=== PATIENT | female | born 1970 | race Caucasian/White ===

== ENCOUNTER 2025-01-22 21:28 | Emergency (ER) | payer OTHER, SELFPAY ==
--- OUTSIDE RECORDS SUMMARY | 2025-01-22 21:31 | XMS_ITS | Clinical Summary ---
Author Organization [employer] [facility] Address [address] [place] [address] Care Team Providers Care Safety Instruction Police Officer Name Role Phone Yasmin Bob Primary Care Provider Rodney Bolanos MD Unavailable [phone] Allergies Active Allergy Reactions Criticality Noted Date Comments Amoxicillin Hives 03/04/2017 Penicillins Hives 12/13/2008 Capsaicin Other - Describe In Comment Field 02/07/2020 Topical - Severe Burning sensation Medications ACCU-CHEK SALOMON 0 08/02/19 18 Active lancetsIndication s:Uncontrolled type 2 diabetes mellitus without complication, without long-term current use of insulin USE TO TEST BLOOD SUGAR 3 TIMES DAILY. DISPENSE ITEM COVERED BY PT'S INSURANCE 300 Each 3 04/14/19 20 Active blood-glucose meterIndications: Type 2 diabetes mellitus without complication, without long-term current use of insulin (HC) Dispense meter, test strips, lancets covered by pt ins. E11.65 NIDDM type II, uncontrolled - Test 3 times/day, Reason: High A1C 1 Device 12/27/19 20 Active pen needle, diabetic (BD Insulin Pen Needle UF) 31 gauge x 08/12Indications: Controlled type 2 diabetes mellitus without complication, without long-term current use of insulin (HC) Remove the 2 covers on the insulin pen needle before administering insulin dose. 100 Each 12/31/19 23 Active continuous glucose monitor READER (PageStitchSYLE MARK)Indications :Type 2 diabetes mellitus with diabetic neuropathy, without long-term current use of insulin (HC) To be used to read blood sugars per leasing specialist's directions. 1 Each 06/19/19 24 Active continuous glucose monitor SENSOR KIT (FREESYLE MARK)Indications :Type 2 diabetes mellitus with diabetic neuropathy, without long-term current use of insulin (HC) To be used to read blood sugars per leasing specialist's directions. 6 Each 3 12/29/19 24 Active pen needle (BD Salomon 2nd Gen Pen Needle) 32 gauge x 5/32 (disposable insulin pen needle)Indication s:Type 2 diabetes mellitus, without long-term current use of insulin (HC) Use to check blood sugar 1-2x/day. Remove the 2 covers on the pen needle before administering medication dose. 100 Each 5 07/05/19 25 Active insulin glargine-yfgn (U-100) (Semglee(insulin glarg-yfgn)Pen) 100 unit/mL (3 mL) penIndications:Co ntrolled type 2 diabetes mellitus without complication, without long-term current use of insulin (HC) Inject 36 units subcutaneous before bedtime. 9 mL 5 08/03/19 25 Active nabumetone (RELAFEN) 500 mg tabletIndications :Costochondritis, Arthritis of left hand,Lumbar pain Take 1 Tablet (500 mg) by mouth two times daily with meals. 60 Tablet 1 12/31/19 25 Active venlafaxine (EFFEXOR XR) 150 mg Extended-Release capsuleIndication s:Anxiety,Adjustm ent disorder, unspecified type,Menopausal symptoms Take 1 Capsule (150 mg) by mouth once daily with a meal. 90 Capsule 3 12/31/19 25 Active traZODone (DESYREL) 50 mg tabletIndications :Anxiety,Adjustme nt disorder, unspecified type Take 1 Tablet (50 mg) by mouth at bedtime. 90 Tablet 3 12/31/19 25 Active rosuvastatin (CRESTOR) 10 mg tabletIndications :Hyperlipidemia, unspecified hyperlipidemia type Take 1 Tablet (10 mg) by mouth at bedtime. 90 Tablet 3 12/31/19 25 Active pregabalin (LYRICA) 50 mg capsuleIndication s:Neuropathy Take 1 Capsule (50 mg) by mouth two times daily. 180 Capsule 3 12/31/19 25 Active metoprolol succinate (TOPROL XL) 50 mg sustained-release tabletIndications :Hypertension, unspecified type Take 1 Tablet (50 mg) by mouth once daily. 90 Tablet 3 12/31/19 25 Active methIMAzole (TAPAZOLE) 5 mg tabletIndications :Hyperthyroidism Take 1 Tablet (5 mg) by mouth once daily. 90 Tablet 1 12/31/19 25 Active metFORMIN (GLUCOPHAGE XR) 500 mg Extended-Release tabletIndications :Controlled type 2 diabetes mellitus without complication, without long-term current use of insulin (HC) Take 4 Tablets (2,000 mg) by mouth once daily. 360 Tablet 3 12/31/19 25 Active empagliflozin (Jardiance) 25 mg tabletIndications :Controlled type 2 diabetes mellitus without complication, without long-term current use of insulin (HC) Take 1 Tablet (25 mg) by mouth once daily. 90 Tablet 1 12/31/19 25 Active insulin glargine U-300 (Toujeo SoloStar U-300 Insulin) 300 unit/mL (1.5 mL) penIndications:Co ntrolled type 2 diabetes mellitus without complication, without long-term current use of insulin (HC) Inject 36 units subcutaneous once daily. 10.5 mL 3 12/31/19 25 Active glipiZIDE extended-release (GLUCOTROL XL) 10 mg Extended-Release tabletIndications :Controlled type 2 diabetes mellitus without complication, without long-term current use of insulin (HC) Take 2 Tablets (20 mg) by mouth once daily before a meal. 180 Tablet 3 12/31/19 25 Active glipiZIDE extended-release (GLUCOTROL XL) 10 mg Extended-Release tabletIndications :Controlled type 2 diabetes mellitus without complication, without long-term current use of insulin (HC) Take 2 Tablets (20 mg) by mouth once daily before a meal. 180 Tablet 3 12/29/19 24 025 Discontin ued(Reord er (E-cancel not sent)) metFORMIN (GLUCOPHAGE XR) 500 mg Extended-Release tabletIndications :Controlled type 2 diabetes mellitus without complication, without long-term current use of insulin (HC) Take 4 Tablets (2,000 mg) by mouth once daily. 360 Tablet 3 12/29/19 24 025 Discontin ued(Reord er (E-cancel not sent)) metoprolol succinate (TOPROL XL) 50 mg sustained-release tabletIndications :HTN (hypertension) Take 1 Tablet (50 mg) by mouth once daily. 90 Tablet 3 12/29/19 24 025 Discontin ued(Reord er (E-cancel not sent)) pregabalin (LYRICA) 50 mg capsuleIndication s:Neuropathy Take 1 Capsule (50 mg) by mouth two times daily. Start on 07/06/23 after weaning gabapentin. 180 Capsule 3 12/29/19 24 025 Discontin ued(Reord er (E-cancel not sent)) rosuvastatin (CRESTOR) 10 mg tabletIndications :Hyperlipidemia, unspecified hyperlipidemia type Take 1 Tablet (10 mg) by mouth at bedtime. 90 Tablet 3 12/29/19 24 025 Discontin ued(Reord er (E-cancel not sent)) traZODone (DESYREL) 50 mg tabletIndications :Anxiety,Adjustme nt disorder, unspecified type Take 1 Tablet (50 mg) by mouth at bedtime. 90 Tablet 3 12/29/19 24 025 Discontin ued(Reord er (E-cancel not sent)) venlafaxine (EFFEXOR XR) 150 mg Extended-Release capsuleIndication s:Anxiety,Adjustm ent disorder, unspecified type,Menopausal symptoms Take 1 Capsule (150 mg) by mouth once daily with a meal. 90 Capsule 3 12/29/19 24 025 Discontin ued(Reord er (E-cancel not sent)) methIMAzole 5 mg tabletIndications :Hyperthyroidism TAKE 1 TABLET BY MOUTH EVERY DAY 90 Tablet 1 06/28/19 25 025 Discontin ued(Reord er (E-cancel not sent)) Jardiance 25 mg tabletIndications :Controlled type 2 diabetes mellitus without complication, without long-term current use of insulin (HC) TAKE 1 TABLET BY MOUTH EVERY DAY 90 Tablet 1 07/19/19 25 025 Discontin ued(Reord er (E-cancel not sent)) insulin glargine U-300 (Toujeo SoloStar U-300 Insulin) 300 unit/mL (1.5 mL) penIndications:Co ntrolled type 2 diabetes mellitus without complication, without long-term current use of insulin (HC) Inject 36 units subcutaneous once daily. 10.5 mL 3 08/11/19 25 025 Discontin ued(Reord er (E-cancel not sent)) nabumetone 500 mg tabletIndications :Costochondritis TAKE 1 TABLET (500 MG) BY MOUTH TWICE A DAY WITH MEALS 60 Tablet 09/07/19 25 025 Discontin ued(Reord er (E-cancel not sent)) Active Problems Problem Noted Date Diagnosed Date Hyperthyroidism 07/11/2024 Type 2 diabetes mellitus wit hout complication, without long-term current use of insulin 07/27/2017 Lumbar facet arthropathy 05/05/2016 Anxiety state, unspecified 11/05/2011 Resolved Problems Problem Noted Date Diagnosed Date Resolved Date Poorly controlled type 2 filomena betes mellitus with neuropathy 04/11/2022 04/08/2024 Uncontrolled type 2 diabetes mellitus, without long-term current use of insulin 04/08/2021 12/16/2021 Dyshidrotic eczema 09/13/2018 Hot flashes 06/19/2015 12/16/2021 Kidney stone 04/05/2015 12/16/2021 Other specified adjustment reaction 05/05/2014 01/07/2022 Bulging lumbar disc 02/13/2014 01/08/20 Facet arthropathy 02/06/2014 04/13/2017 Lateral epicondylitis 11/21/20132021 Encounters Date Type Department Care Team Description 12/30/2024 11:50 AM CDT Office Visit [facility] [address] [place] [address] Yasmin Bob PA Diabetes (Diabetic check); Back Pain/problem (Hearing popping noises from her back / does has pain in her lower back, worse at night time); Hand Pain/problem (Having more pain in her L hand - arthritis? ) 12/30/2024 Refill [facility] [address] [place] [address] Yasmin Bob PA Refill Request (Rosuvastatin, Methimazole) 12/29/2024 Travel 11/30/2024 Nurse Triage [facility] [address] [place] [address] Yasmin Bob PA Hand Pain/problem from Last 3 Months Immunizations Immunization Administration Dates Next Due AMB Influenza, IIV3 (Age >=3 years)(Flu Clinic Only) 12/14/2012 AMB Influenza, IIV4 PF (=>6 mos Flulaval,Fluzone Fluarix)(Flu Clinic Only) 01/01/2018 COVID-19 vaccine (Nanostellar NTech 30mcg/0.3mL) PF, MDV 08/01/2020,07/11/2020 Hepatitis B (Adult) 12/20/2019,12/21/2018,2018 INFLUENZA, IIV3 PF (AGE >= 6 MO) 01/01/2024 Influenza Virus, Unspecified 01/01/2024,12/30/19 09 Influenza, IIV3 (Age >=3 years) 12/23/2011 Influenza, IIV4 12/30/2022,,11/13/2020,2019,12/21/2018,12/14/2015,12/20/2014,0 12/13/2013 Influenza, IIV4 (=>6mos) MDV 01/14/2017 Pneumococcal Poly,23-Valent (Pneumovax) 10/25/2018 Tdap 10/27/2011 Family History Medical History Relation Name Comments Diabetes Father Hyperlipidemia Father Hypertension Father Other Maternal Grandmother brain t umor Hyperlipidemia Mother Thyroid Disease Mother Cancer-breast Other Maternal cousi n at age 22 Heart Disease Paternal Grandfather Cancer-ovarian No Family History Relation Name Status Comments Father Maternal Grandmother Mother Other Paternal Grandfather Social History Tobacco Use Types Packs/Day Years Used Date Smoking Tobacco: Passive Smo ke Exposure - Never Smoker Smokeless Tobacco: Never Tobacco Cessation:Counseling Given: Yes Alcohol Use Standard Drinks/Week Comments No 0 (1 standard drink = 0.6 oz pur e alcohol) PHQ-2 Answer Date Recorded PHQ-2 TOTAL SCORE 0 09/27/2019 Social Connections Answer Date Recorded Do you often feel lonely or isolated from those around you? 0 12/30/2024 Financial Resource Strain Answer Date R ecorded Difficulty of Paying Living Expenses 3 12/30/2024 Difficulty of Paying Living Expenses Not on file 12/30/2024 Food Insecurity Answer Date Recorded Do you worry your food will run out before you are able to buy more? 1 12/30/2024 Transportation Needs Answer Date Record ed Does lack of transportation keep you from medica l appointments? 1 12/30/2024 Does lack of transportation keep you from work, meetings or getting things that you need? 1 12/30/2024 Housing Stability Answer Date Recorded What is your housing situation today? 1 12/30/2024 Utilities Answer Date Recorded Do you have trouble paying f or utilities (for example, heat, electricity, water, phone)? 1 12/30/2024 Comments No Sex and Gender Information Value Date Recorded Sex Assigned at Not on file Legal Sex Female 5:24 AM [employer] Gender Identity Not on file Sexual Orientation Not on file Obstetrics History Last Filed Vital Signs Vital Sign Reading Time Taken Comments Blood Pressure 132/74 12/30/2024 12:28 PM CDT ma nual Pulse 73 12/30/2024 12:01 PM CDT Temperature 36.4 C (97.6 F) 01/11/2024 8:17 AM CDT Respiratory Rate 16 01/11/2024 8:17 AM CDT Oxygen Saturation 97% 07/11/2024 9:12 AM CDT Inhaled Oxygen Concentration - - Weight 80.5 kg (177 lb 6.4 oz) 12/30/2024 12:01 PM CDT Height 161 cm (5' 3.39) 01/07/2022 11:51 AM CDT Body Mass Index 31.04 01/07/2022 11:51 AM CDT Plan of Treatment Health Maintenance Due Date Last Done Comments HIV for age 15-65 12/08/1987 Hepatitis C screening for ag e 18-79 1990 Colonoscopy through age 75 2017 Pneumococcal series for age 50+ (2 of 2 - PCV) 10/26/2019 10/25/2018 Depression screening for age 12+ 09/26/2020 09/27/2019, 09/15/2018, 09/13/2018, Additional history exists Pap test for age 21-65 11/24/2020 8, 12/06/2014, 10/27/2011 Tetanus booster 10/26/2021 10/27/2011 Mammogram for age 45-75 01/22/2022 01/23/20 21, 01/29/2016, 12/06/2014, Additional history exists Zoster (shingles) series for age 50+ (1 of 2) 2022 BMI (ht and wt on same day) for age 18+ 01/07/2023 01/07/2022, 05/24/2021, 10/23/2020, Additional history exists Influenza Vaccine (#1) 2024 , 01/01/2024, 12/30/2022, Additional history exists Lipids for age 45-75 12/30/2029 12/30/2024, 12/29/2023, 06/19/2023, Additional history exists RSV vaccine for adults or (1 - 1-dose 75+ series) 12/08/2047 Hepatitis B series for 19+ Completed 12/19, 12/21/2018, 10/25/2018 Procedures Procedure Name Priority Date/Time Associated Diagnosis Comments TSH Routine 12/30/2024 12:38 PM CDT Hyperthyroidism LIPID PANEL W REFLEX MEASURED LDL Routine 12/30/2024 12:38 PM CDT Controlled type 2 diabetes mellitus without complication, without long-term current use of insulin (HC) BASIC METABOLIC PANEL Routine 12/30/2024 12:38 PM CDT Hypertension, unspecified type HEMOGLOBIN A1C MONITORING (POCT) Routine 12/30/2024 12:38 PM CDT Controlled type 2 diabetes mellitus without complication, without long-term current use of insulin (HC) XR MAMMO BILAT SCREENING Routine 01/22/2021 3:32 PM CDT Visit for screening mammogram PALAEONTOLOGIST THIN PREP PAP SCREEN IMAGED Routine 11/24/2017 2:50 PM CDT Screening for cervical cancer from Last 3 Months or Most Recently Relevant to Health Maintenance Results * (ABNORMAL) LIPID PANEL W REFLEX MEASURED LDL (12/30/2024 12:38 PM CDT) CHOLESTEROL, TOTAL 101 <200 mg/dL 12/31/2024 4:04 AM CDT [facility] TRIGLYCERIDES 233(H) <150 mg/dL 12/31/2024 4:04 AM CDT [facility] Comment: If a non-fasting specimen was collected, consider repeat triglyceride testing on a fasting specimen if clinically indicated. Jessie et al. J. of Clin. Lipidol. 2015;9:129-169. HDL CHOLESTEROL 28(L) > OR = 50 mg/dL 12/31/2024 4:04 AM CDT [facility] NON HDL CHOLESTEROL 73 <130 mg/dL (calc) 12/31/2024 4:04 AM CDT [facility] Comment: For patients with diabetes plus 1 major ASCVD risk factor, treating to a non-HDL-C goal of <100 mg/dL (LDL-C of <70 mg/dL) is considered a therapeutic option. CHOL/HDLC RATIO 3.6 <5.0 (calc) 12/31/2024 4:04 AM CDT [facility] LDL-CHOLESTEROL 44 mg/dL (calc) 12/31/2024 4:04 AM [facility] Comment: Reference range: <100 Desirable range <100 mg/dL for primary prevention; <70 mg/dL for patients with CHD or diabetic patients with > or = 2 CHD risk factors. LDL-C is now calculated using the Pantera-Allyssa calculation, which is a validated novel method providing better accuracy than the Friedewald equation in the estimation of LDL-C. Pantera SS et al. BURKE. 2013;310(19): 3707-1866 (http://education.Amazing Photo Letters.ikeGPS/faq/ZLM716) Blood BLOOD SPECIMEN / Unknown [facility] / Unknown 12/30/2024 12:38 PM CDT 12/30/2024 12:38 PM CDT us Yasmin ANGELES CHEMISTRY Final R esult [facility] [address] [place] [address], * (ABNORMAL) TSH (12/30/2024 12:38 PM CDT) TSH 5.12(H) mIU/L 12/31/2024 5:12 AM CDT [facility] Comment: Reference Range > or = 20 Years 0.40-4.50 Ranges First trimester 0.26-2.66 Second trimester 0.55-2.73 Third trimester 0.43-2.91 Blood BLOOD SPECIMEN / Unknown [facility] / Unknown 12/30/2024 12:38 PM CDT 12/30/2024 12:38 PM CDT Yasmin ANGELES CHEMISTRY Final R esult Performing Organization Address [facility]/ZIP Co de Phone Number [facility] [address] [place] [phone], [place] [phone] * (ABNORMAL) HEMOGLOBIN A1C MONITORING (POCT) (12/30/2024 12:38 PM CDT) Pathologist [facility] POC HEMOGLOBIN A1C 6.6(H) <6.0 % OF TOTAL HGB 12/30/2024 1:04 PM CDT [facility] Comment: Any point of care results exhibiting inconsistency with the patient's clinical status should be repeated using a different testing method. Blood BLOOD SPECIMEN / Unknown [facility] / Unknown 12/30/2024 12:38 PM CDT 12/30/2024 12:38 PM CDT us Yasmin ANGELES CHEMISTRY Final R esult Performing Organization Address [facility]/ZIP Co de Phone Number [facility] [address] [place] [phone], [place] [phone] [facility] [address] [place] [address], [place] [phone] * (ABNORMAL) BASIC METABOLIC PANEL (12/30/2024 12:38 PM CDT) SODIUM 143 135 - 146 mmol/L 12/31/2024 4:04 AM CDT [facility] POTASSIUM 3.6 3.5 - 5.3 mmol/L 12/31/2024 4:04 AM CDT [facility] CARBON DIOXIDE 30 20 - 32 mmol/L 12/31/2024 4:04 AM CDT [facility] GLUCOSE 140(H) 65 - 99 mg/dL 12/31/2024 4:04 AM CDT [facility] Comment: Fasting reference interval For someone without known diabetes, a glucose value >125 mg/dL indicates that they may have diabetes and this should be confirmed with a follow-up test. CALCIUM 8.9 8.6 - 10.4 mg/dL 12/31/2024 4:04 AM CDT [facility] CREATININE 0.85 0.50 - 1.03 mg/dL 12/31/2024 4:04 AM CDT [facility] BUN/CREATININE RATIO SEE NOTE: 6 - 22 (calc) 12/31/2024 4:04 AM CDT [facility] Comment: Not Reported: BUN and Creatinine are within reference range. EGFR 82 > OR = 60 mL/min/1. 73m2 12/31/2024 4:04 AM CDT [facility] UREA NITROGEN (BUN) 9 7 - 25 mg/dL 12/31/2024 4:04 AM CDT [facility] ELECTROLYTE BALANCE 8 7 - 17 mmol/L (calc) 12/31/2024 4:04 AM CDT [facility] CHLORIDE 105 98 - 110 mmol/L 12/31/2024 4:04 AM CDT [facility] Blood BLOOD SPECIMEN / Unknown [facility] / Unknown 12/30/2024 12:38 PM CDT 12/30/2024 12:38 PM CDT us Yasmin ANGELES CHEMISTRY Final R esult [facility] [address] [place] [address], * XR MAMMO BILAT SCREENING (01/22/2021 3:32 PM CDT) Anatomical Region Laterality Modality BREASTS, Breast Left, Breast Right Bilateral Mammography Impressions 01/23/2021 4:22 PM CDT There is no radiographic evidence for malignancy. Recommend annual mammograms. MAMMOGRAM ASSESSMENT: ACR 1 Negative PATIENTS: You will also receive a letter with your examination results in an easy to read format. If you have questions about your results, please contact your referring provider. Narrative 01/23/2021 4:22 PM CDT For Patients: As a result of the Century Cures Act, medical imaging exams and procedure reports are released immediately into your electronic medical record. You may view this report before your referring provider. If you have questions, please contact your health care provider. XR MAMMO BILAT SCREENING [[id number]] CLINICAL HISTORY: This is an asymptomatic 50 y.o. patient. INDICATION FOR EXAM: Mammogram Screening. TECHNIQUE: CC & MLO views were obtained. This study was evaluated with the assistance of Computer-Aided Detection. COMPARISON FILM: Yes 01/29/16 [email or web address]: The breasts are almost entirely fatty. There are no dominant masses, suspicious micro calcifications or areas of architectural distortion. us Yasmin ANGELES MAMMO Final R esult * PALAEONTOLOGIST THIN PREP PAP SCREEN IMAGED (11/24/2017 2:50 PM CDT) Case Report Gynecologic Cytology Report Case: [id number] Authorizing Provider: Yasmin Bob PA Collected: 11/24/2017 1450 Ordering Location: [facility] Received: 11/24/2017 1554 Clinic First Screen: Cyn Esparza Specimen: PALAEONTOLOGIST ThinPrep Vial Screening, Cervical 12/06/2017 11:29 AM CDT [facility] INTERPRETATION/ RESULT NEGATIVE FOR INTRAEPITHELIAL LESION OR MALIGNANCY (NIL) (none) 12/06/2017 11:29 AM CDT [facility] at 1129 CDT SPECIMEN ADEQUACY Satisfactory for evaluation Endocervical component present 12/06/2017 11:29 AM CDT [facility] HPV REQUEST HPV if ASCUS 12/06/2017 11:29 AM CDT [facility] Date of LMP 11/02/2017 12/06/2017 11:29 AM CDT [facility] Last Pap Date 12/06/14 12/06/2017 11:29 AM CDT [facility] Last Pap Result NIL 11:29 AM CDT [facility] Abnormal Pap or [place] Bx in last 5 years No 12/06/2017 11:29 AM CDT [facility] Menstrual Status Regular Periods 12/06/2017 11:29 AM CDT [facility] [place] Bx Done Today No 12/06/2017 11:29 AM CDT [facility] Additional Information None given 12/06/2017 11:29 AM CDT [facility] Automated Review Successful 12/06/2017 11:29 AM T [facility] Comment:Specimen processed s uccessfully by automated senior marketing data analyst device, ThinPrep Imaging System, [employer] Note The pap test is a screening technique, not a diagnostic procedure. It is used primarily to screen for squamous cancers and precursor lesions. Published studies have shown that it is subject to both false negative and false positive results. The pap test should not be used as the sole means to diagnose or exclude pre-malignant and malignant lesions. Cytology is screened and interpreted at [facility] - [address], [place] [address] and [facility] - [address]; [place] [address] [facility] - [address]; [place] [address] and [facility] [address]; [place] [address] 12/06/2017 11:29 AM CDT [facility] Other (Cervical) Non-Blood / Unknown 11/24/2017 2:50 PM CDT 11/24/2017 3:54 PM CDT us Yasmin ANGELES PATHOLOGY/CYTOLOGY Keily mckeon Result [facility] [address] [place] [address], [place] from Last 3 Months or Most Recently Relevant to Health Maintenance Insurance [employer] [facility] ATTN[place] [address] [facility] [employer] [facility] ATTN: [place] [address] Care Teams Safety Instruction Police Officer Relationship Specialty Start Date End Date Yasmin Bob PA [address] [place] [address] PCP - General Family Practice 06/06/11 Rodney Bolanos MD [address] [facility] [address] [place] [address] Endocrinology Endocrinology 04/01/22
[2025-01-22 21:44] VITALS: BP 132/86; PULSE 92; RESP 16; TEMP 35.9; O2SAT 97; BMI 31.4
--- NOTE | 2025-01-22 21:59 | ED.GENADULT ---
HPI - General Adult General Chief complaint: Chest Pain Stated complaint: Left Chest Pain Time Seen by Provider: 01/22/25 21:58 History of Present Illness HPI narrative: c/o pain on the left side of the sternum for the past 3 days pt. has noticed a gradual onset of pain on the left side of her sternum for the past 3 days. has been starting out with hardly any pain to start the day and then increased as the day goes on. pain tends to increase with movement of the left arm. pt. endorses that she has been recently doing more lifting, in the past few months. 54-year-old woman presenting to the emergency department with concern of left-sided chest pain. She describes it just on the left side of her sternum. And radiates up sometimes up a little higher at a diagonal toward the medial clavicle. Been going on for about 3 days. Has escalated over this time. Does not recall specific injury. Has been lifting more things lately over the last some months though. Not really short of breath. Sort of pleuritic. She says this has happened before maybe a year ago. Was given naproxen which did seem to help; this time it does not seem so helpful. Related Data Home Medications ?Medication ?Instructions ?Recorded ?Confirmed empagliflozin 25 mg tablet 25 mg PO DAILY 01/22/25 01/22/25 (Jardiance) glipizide 10 mg tablet, extended mg PO 01/22/25 release 24 hr insulin glargine-yfgn 100 unit/mL 40 unit subcut QPM 01/22/25 01/22/25 (3 mL) subcutaneous pen metformin 500 mg tablet,extended 2,000 mg PO DAILY 01/22/25 01/22/25 release 24 hr metoprolol succinate 50 mg 50 mg PO DAILY 01/22/25 01/22/25 tablet,extended release 24 hr pregabalin 50 mg capsule 50 mg PO BID 01/22/25 01/22/25 rosuvastatin 10 mg tablet 10 mg PO QPM 01/22/25 01/22/25 trazodone 50 mg tablet 50 mg PO QPM 01/22/25 01/22/25 venlafaxine 150 mg 150 mg PO DAILY 01/22/25 01/22/25 capsule,extended release 24 hr Previous Rx's ?Medication ?Instructions ?Recorded indomethacin 25 mg capsule 25 mg PO TID PRN pain #15 caps 01/22/25 Allergies Allergy/AdvReac Type Severity Reaction Status Date / Time amoxicillin Allergy Intermediate Verified 01/22/25 21:34 Penicillins Allergy Intermediate Hives Verified 01/22/25 21:34 Review of Systems Status of ROS: Reports: 6 or more systems reviewed and unremarkable except as noted in History and below [facility] Smoking Status: Never smoker Second hand tobacco smoke exposure: No How often do you have a drink containing alcohol: never AUDIT-C Alcohol total score: 0 Non-prescribed substance use: denies use Exam Narrative: Exam Narrative: Pleasant. NAD. Good energy. Skin is warm and dry. No rashes/blisters. Lungs are clear with equal expansion excursion. There is no supraclavicular crepitus. Trach is midline. She is a little sore to palpation just left of the sternum. I do not appreciate a defect. No pain to palpation about the clavicle directly or the AC joint of the shoulders. Well-perfused peripherally. Heart in mildly elevated rate in a regular rhythm. Const: Vital Signs, click to edit/add: Vital Signs - 24 hr 01/22/25 21:44 Temperature 96.6 F L Pulse Rate [Pulse Oximeter] 92 Respiratory Rate 16 Blood Pressure [Ri ght Upper Arm] 132/86 Pulse Oximetry 97 Oxygen Delivery Me thod Room Air Documenting provider has reviewed patient's vital signs: yes Course Vital Signs Vital signs: Initial Vital Signs Respiratory Effort Normal, Spontaneous, Non-Labored 01/22/25 21:36 Respiratory Depth Normal 01/22/25 21:36 Vital Signs Temperature 96.6 F L 01/22/25 21:44 Pulse Rate 92 01/22/25 21:44 Respiratory Rate 16 01/22/25 21:44 Blood Pressure 132/86 01/22/25 21:44 Pulse Oximetry 97 01/22/25 21:44 Oxygen Delivery Method Room Air 01/22/25 21:44 Temperature 98.0 F 01/22/25 23:41 Pulse Rate 92 01/22/25 23:41 Respiratory Rate 16 01/22/25 23:41 Blood Pressure 128/85 01/22/25 23:41 Pulse Oximetry 97 01/22/25 23:39 Oxygen Delivery Method Room Air 01/22/25 23:39 Medications Administered Medications: Discontinued Medications Generic Name Dose Route Start Last Admin Trade Name Juanq PRN Reason Stop Dose Admin Indomethacin 50 mg 01/22/25 22:59 01/22/25 23:26 Indomethacin 25 Mg Capsule PO 01/22/25 23:00 Not Given ONCE ONE Ketorolac Tromethamine 10 mg 01/22/25 23:28 01/22/25 23:38 Ketorolac 10 Mg Tablet PO 01/22/25 23:29 10 mg ONCE ONE Administration Lidocaine 1 patch 01/22/25 22:16 01/22/25 22:45 Lidocaine 5% Patch TRANSDERMA 01/22/25 22:17 1 patch ONCE ONE Administration Protocol Medical Decision Making MDM Narrative Medical decision making narrative: Appears to have chest wall pain. Might be some sternal clavicular articulation irritation. Does not sound as though has had imaging before. Could be costochondritis otherwise. Less likely pleuritis. No symptoms to suggest pneumonia. Can certainly look look for bony lesion of some sort; this seems to be of some concern. I did request external x-ray. By my independent review looks unremarkable. Radiology over-read below INDICATION: Left upper parasternal sternum pain TECHNIQUE: Sternum radiograph 2 views COMPARISON: None FINDINGS: Bone: No acute fractures or aggressive bone lesions are identified. Joint: The sternoclavicular joint is unremarkable. Soft tissue: Mottled densities are seen overlying the sternum which may be due to the anterior chest wall musculature. The visualized hemithorax is unremarkable in appearance. IMPRESSION: 1. No acute osseous injuries noted. Dictated by: Alec Naidu MD @ 01/22/2025 22:38:27 Placed lidocaine patch. See patient discharge plan for further discussion It does sound as though you are experiencing chest wall pain. I do not know if this is more inflammation of the ribs/sternum or if this is related to some arthritis/dysfunction of the connection between the ribs and sternum. I understand that the naproxen in prescription strength was not helpful this time. If this lidocaine patch seems helpful, you can purchase more [id number]. I am sending in a prescription for indomethacin; a potent anti-inflammatory we often use to treat gout. You could take this 3 times a day with a little food over the next 4 days. You received 1 dose here. I would also consider icing the sore area 2-3 times daily over the next few days. See handout on sternoclavicular joint separation. I think these exercises might be helpful for you. I do not think that this is your diagnosis. Discharge Plan Discharge Clinical Impression: Chest wall pain Patient Disposition: Home w/ Parent or Adult Condition: Stable Additional Instructions: It does sound as though you are experiencing chest wall pain. I do not know if this is more inflammation of the ribs/sternum or if this is related to some arthritis/dysfunction of the connection between the ribs and sternum. I understand that the naproxen in prescription strength was not helpful this time. If this lidocaine patch seems helpful, you can purchase more [id number]. I am sending in a prescription for indomethacin; a potent anti-inflammatory we often use to treat gout. You could take this 3 times a day with a little food over the next 4 days. You received 1 dose here. I would also consider icing the sore area 2-3 times daily over the next few days. See handout on sternoclavicular joint separation. I think these exercises might be helpful for you. I do not think that this is your diagnosis. Prescriptions: New indomethacin 25 mg capsule 25 mg PO TID PRN (Reason: pain) Qty: 15 0RF Rx Instructions: administer with food or milk No Action trazodone 50 mg tablet 50 mg PO QPM metoprolol succinate 50 mg tablet extended release 24 hr 50 mg PO DAILY glipizide 10 mg tablet extended release 24hr PO venlafaxine 150 mg capsule,extended release 24hr 150 mg PO DAILY metformin 500 mg tablet extended release 24 hr 2,000 mg PO DAILY rosuvastatin 10 mg tablet 10 mg PO QPM pregabalin 50 mg capsule 50 mg PO BID Jardiance 25 mg tablet 25 mg PO DAILY insulin glargine-yfgn 100 unit/mL (3 mL) insulin pen 40 unit subcut QPM Follow Up/Referrals: Yasmin Bob PA-C [Primary Care Provider, Family Practice] Stand Alone Forms: [employer] Info Instructions
--- NOTE | 2025-01-22 22:16 | CRLHL7_ITS ---
For Patients: As a result of the Cures Act, medical imaging exams and procedure reports are released immediately into your electronic medical record. You may view this report before your referring provider. If you have questions, please contact your health care provider. INDICATION: Left upper parasternal sternum pain TECHNIQUE: Sternum radiograph 2 views COMPARISON: None FINDINGS: Bone: No acute fractures or aggressive bone lesions are identified. Joint: The sternoclavicular joint is unremarkable. Soft tissue: Mottled densities are seen overlying the sternum which may be due to the anterior chest wall musculature. The visualized hemithorax is unremarkable in appearance. IMPRESSION: 1. No acute osseous injuries noted. Dictated by: Alec Naidu MD @ 01/22/2025 22:38:27 (Electronically Signed)
[2025-01-22] MEDS: LIDOCAINE 5% PATCH 1 PATCH TRANSDERMA (22:45)
[2025-01-22 23:38] VITALS: TEMP 35.9
[2025-01-22] MEDS: KETOROLAC 10 MG TABLET PO (23:38)
[2025-01-22 23:39] VITALS: BP 128/85; PULSE 92; RESP 16; TEMP 36.7; O2SAT 97
[2025-01-22 23:41] VITALS: BP 128/85; PULSE 92; RESP 16; TEMP 36.7
== END 2025-01-22 23:42 | disposition home or self-care (01) ==
PROVIDERS: Emergency Provider Family Medicine; PCP Physician Assistant Medical
DX: R07.89 Other chest pain (principal)
CPT/HCPCS: 71120; 99283; 99284; A9270